=== PATIENT | male | born 1985 | race Two or more races ===

== ENCOUNTER 2023-03-28 01:41 | Emergency (ER) | payer BC ==
[2023-03-28] MEDS: Acetaminophen 325 MG Tab PO ONE (02:19)
[2023-03-28] MEDS: Ibuprofen 600 MG Tab PO ONE (02:20)
[2023-03-28] MEDS: Ibuprofen 600 MG Tab ONE (02:48)
[2023-03-28] MEDS: Acetaminophen 325 MG Tab ONE (02:49)
== END 2023-03-28 02:55 | disposition home or self-care (01) ==
LOC: LB.ED 01:41
DX: S69.92XA Unspecified injury of left wrist, hand and finger(s), initial encounter (principal); Z87.891 Personal history of nicotine dependence; Y04.0XXA Assault by unarmed brawl or fight, initial encounter
CPT/HCPCS: 73130-LT; 99282; 99283; A9270-GY

== ENCOUNTER 2023-05-03 06:46 | Emergency (ER) | payer BC ==
[2023-05-03] MEDS ORDERED: Sodium Chloride 0.9% 10 ML Syringe FLUSH PRN (07:13)
[2023-05-03] MEDS ORDERED: Ondansetron 4 MG/2 ML SDV IVPUSH SCH (07:15)
[2023-05-03 07:29] LABS: BASOPHILS ABSOLUTE AUTO 0.04 K/uL (0.02-0.10); BASOPHILS PERCENT AUTO 0.4 % (0.0-0.5); EOSINOPHILS ABSOLUTE AUTO 0.04 K/uL (0.04-0.40); EOSINOPHILS PERCENT AUTO 0.4 % (1.0-5.0); HEMATOCRIT 43.9 % (40.0-54.0); HEMOGLOBIN 15.6 g/dL (13.0-18.0); LYMPHOCYTES ABSOLUTE AUTO 2.76 K/uL (1.50-4.00); LYMPHOCYTES PERCENT AUTO 28.2 % (20.0-40.0); MEAN CORPUSCULAR HEMOGLOBIN 30.8 pg (27.0-32.0); MEAN CORPUSCULAR HGB CONC 35.5 g/dL (31.0-35.0); MEAN CORPUSCULAR VOLUME 87 fL (76-96); MEAN PLATELET VOLUME 9.2 fL (6.0-10.0); MONOCYTES ABSOLUTE AUTO 0.52 K/uL (0.20-0.80); MONOCYTES PERCENT AUTO 5.3 % (3.0-10.0); NEUTROPHILS ABSOLUTE AUTO 6.42 K/uL (2.00-7.50); NEUTROPHILS PERCENT AUTO 65.7 % (45.0-70.0); PLATELET COUNT,PLT 213 K/uL (150-400); RED BLOOD CELL COUNT 5.07 M/uL (4.50-6.50); RED CELL DISTRIBUTION WIDTH 12.1 % (11.0-16.0); WHITE BLOOD CELL COUNT,WBC 9.8 K/uL (4.0-11.0)
[2023-05-03 07:46] LABS: A/G RATIO 1.3 (0.8-2.0); ALBUMIN 4.3 g/dL (3.4-5.0); ANION GAP 14.9 mmol/L (5.0-15.0); BILIRUBIN TOTAL 0.5 mg/dL (0.0-1.0); BUN/CREATININE RATIO 18.4 (6-25); CALCIUM 8.9 mg/dL (8.5-10.1); CARBON DIOXIDE,CO2 29.5 mmol/L (21.0-32.0); CREATININE 0.98 mg/dL (0.70-1.30); EST CRCL DRUG DOSING (CG) 108.85 mL/min; POTASSIUM,K 3.4 mmol/L (3.5-5.1); PROTEIN TOTAL,TP 7.7 g/dL (6.4-8.2)
[2023-05-03] MEDS ORDERED: Morphine 4 MG/ML VIAL IVPUSH SCH (08:15)
[2023-05-03] MEDS ORDERED: GI Cocktail Oral Solution 30 ML PO ONE (08:16)
[2023-05-03] MEDS ORDERED: Iopamidol 612 MG/ML 100 ML Bottle IV PRN (08:28)
[2023-05-03] MEDS ORDERED: Sodium Chloride 0.9% 50 ML SDV FLUSH SCH (08:30)
[2023-05-03] MEDS ORDERED: Morphine 4 MG/ML VIAL IVPUSH ONE (09:25)
[2023-05-03] MEDS ORDERED: Morphine 4 MG/ML VIAL ONE (09:27)
[2023-05-03] MEDS ORDERED: Pantoprazole 40 MG Vial IVPUSH ONE (09:28)
[2023-05-03] MEDS ORDERED: Pantoprazole 40 MG Vial ONE (09:46)
[2023-05-03] MEDS ORDERED: HYDROmorphone 2 MG/ML Syringe IVPUSH ONE (10:05)
[2023-05-03 10:13] LABS: APPEARANCE,URINE TURBID (CLEAR); BILIRUBIN,URINE NEGATIVE (NEGATIVE); COLOR,URINE YELLOW; GLUCOSE,URINE NEGATIVE (NEGATIVE); KETONES,URINE NEGATIVE (NEGATIVE); LEUKOCYTE ESTERASE,URINE NEGATIVE (NEGATIVE); NITRITE,URINE NEGATIVE (NEGATIVE); OCCULT BLOOD,URINE NEGATIVE (NEGATIVE); PH,URINE 7.5 (5.0-8.0); PROTEIN,URINE NEGATIVE (NEGATIVE)
[2023-05-03] MEDS ORDERED: HYDROmorphone 2 MG/ML Syringe ONE (10:18)
== END 2023-05-03 11:28 | disposition home or self-care (01) ==
LOC: LB.ED 06:46
DX: K29.20 Alcoholic gastritis without bleeding (principal)
CPT/HCPCS: 36415; 74177; 80053; 81003; 83690; 85025; 96374; 96375; 96376; 99283; 99284-25; A9270-GY; C9113; J1170; J2270; J2405; J3490; Q9967

== ENCOUNTER 2023-05-07 02:17 | Emergency (ER) | payer BC ==
[2023-05-07] MEDS ORDERED: Pantoprazole 40 MG Vial IVPUSH ONE (02:46)
[2023-05-07] MEDS ORDERED: Sucralfate 1 GM Tab PO ONE (02:47)
[2023-05-07] MEDS ORDERED: Famotidine 20 MG/2 ML SDV IVPUSH ONE (02:47)
[2023-05-07] MEDS ORDERED: GI Cocktail Oral Solution 30 ML PO ONE (02:48)
[2023-05-07] MEDS ORDERED: Pantoprazole 40 MG Vial ONE (02:50)
[2023-05-07] MEDS ORDERED: Morphine 4 MG/ML VIAL ONE (02:54)
[2023-05-07] MEDS ORDERED: Morphine 4 MG/ML VIAL IVPUSH ONE (02:55)
[2023-05-07] MEDS ORDERED: Ondansetron 4 MG/2 ML SDV IVPUSH ONE (02:55)
[2023-05-07] MEDS: Ondansetron 4 MG/2 ML SDV ONE ×3 (02:59→03:40)
[2023-05-07 03:28] LABS: BASOPHILS ABSOLUTE AUTO 0.02 K/uL (0.02-0.10); BASOPHILS PERCENT AUTO 0.2 % (0.0-0.5); EOSINOPHILS ABSOLUTE AUTO 0.05 K/uL (0.04-0.40); EOSINOPHILS PERCENT AUTO 0.4 % (1.0-5.0); HEMATOCRIT 42.5 % (40.0-54.0); HEMOGLOBIN 15.1 g/dL (13.0-18.0); LYMPHOCYTES ABSOLUTE AUTO 1.83 K/uL (1.50-4.00); LYMPHOCYTES PERCENT AUTO 16.1 % (20.0-40.0); MEAN CORPUSCULAR HEMOGLOBIN 30.9 pg (27.0-32.0); MEAN CORPUSCULAR HGB CONC 35.5 g/dL (31.0-35.0); MEAN CORPUSCULAR VOLUME 87 fL (76-96); MEAN PLATELET VOLUME 9.2 fL (6.0-10.0); MONOCYTES ABSOLUTE AUTO 0.81 K/uL (0.20-0.80); MONOCYTES PERCENT AUTO 7.1 % (3.0-10.0); NEUTROPHILS ABSOLUTE AUTO 8.67 K/uL (2.00-7.50); NEUTROPHILS PERCENT AUTO 76.2 % (45.0-70.0); PLATELET COUNT,PLT 236 K/uL (150-400); RED BLOOD CELL COUNT 4.88 M/uL (4.50-6.50); WHITE BLOOD CELL COUNT,WBC 11.4 K/uL (4.0-11.0)
[2023-05-07] MEDS ORDERED: HYDROmorphone 2 MG/ML Syringe IVPUSH PRN ×3 (03:30→03:39)
[2023-05-07] MEDS ORDERED: HYDROmorphone 2 MG/ML Syringe ONE ×3 (03:30→07:37)
[2023-05-07] MEDS ORDERED: HYDROmorphone 2 MG/ML Syringe IVPUSH ONE ×3 (03:31→05:40)
[2023-05-07 03:40] LABS: A/G RATIO 1.3 (0.8-2.0); ALANINE AMINOTRANSFERASE,ALT 136 U/L (12-78); ALBUMIN 4.4 g/dL (3.4-5.0); ALKALINE PHOSPHATASE 110 U/L (46-116); ANION GAP 15.1 mmol/L (5.0-15.0); ASPARTATE AMNIOTRANSFERASE,AST 39 U/L (15-37); BILIRUBIN TOTAL 1.2 mg/dL (0.0-1.0); BLOOD UREA NITROGEN,BUN 13 mg/dL (8-26); BUN/CREATININE RATIO 14.6 (6-25); CALCIUM 8.9 mg/dL (8.5-10.1); CARBON DIOXIDE,CO2 27.9 mmol/L (21.0-32.0); CHLORIDE,CL 97 mmol/L (98-107); CREATININE 0.89 mg/dL (0.70-1.30); ESTIMATED GFR 112 mL/min (>60); GLUCOSE RANDOM 100 mg/dL (74-100); LIPASE 52 U/L (16-77); PROTEIN TOTAL,TP 7.8 g/dL (6.4-8.2); SODIUM,NA 136 mmol/L (136-145)
[2023-05-07] MEDS ORDERED: Sodium Chloride 0.9% 1,000 ML IV ONE (03:41)
[2023-05-07] MEDS ORDERED: Piperacillin/Tazobactam 3.375 GM in Sodium Chloride 0.9% 100 ML IV ONE (07:29)
[2023-05-07] MEDS ORDERED: HYDROmorphone 2 MG/ML Syringe IV ONE (07:35)
[2023-05-07 08:19] VITALS: BP 136/91; PULSE 90
== END 2023-05-07 08:50 | disposition critical access hospital (66) ==
LOC: LB.ED 02:17
DX: K81.0 Acute cholecystitis (principal); K21.9 Gastro-esophageal reflux disease without esophagitis; Z79.899 Other long term (current) drug therapy
CPT/HCPCS: 36415; 74176; 80053; 83690; 84484; 85025; 93005; 96361; 96365; 96375; 96376; 99285-25; A9270-GY; C9113; J1170; J2270; J2405; J2543; J3490; J7030